=== PATIENT | male | born 1955 | race Caucasian/White ===

== ENCOUNTER 2019-07-23 18:00 | Emergency (ER) | payer OTHER ==
--- NOTE | 2019-07-23 22:18 | ED ---
Throat Pain/Nasal Congestion - HPI Summary HPI Summary: This pt is a 64 Y/O M presenting to [facility] with a CC of a possible detached R retina that occurred around 1600 or 1630. He states that he was fishing and returned to his car when he started to experience floaters in his visual field. He states that he was trying to drive when his eye glazed over. He states that he has a Hx of a torn retina one year ago in his R eye. He states that in his previous episode he had light flashes but is currently not experiencing that. He has no pain or headaches. He has no aggravating or alleviating factors. He has a PMHx of a detached retina in his R eye. - History of Current Complaint Chief Complaint: EDEyeProblem Time Seen by Provider: 07/23/19 21:49 Hx Obtained From: Patient Onset/Duration: Sudden Onset, Still Present Severity: Moderate - Allergies/Home Medications Allergies/Adverse Reactions: Allergies Allergy/AdvReac Type Severity Reaction Status Date / Time codeine Allergy Hives Verified 07/23/19 18:18 Home Medications: Home Medications Atorvastatin* [Lipitor*] 80 mg PO BEDTIME 07/23/19 [History Confirmed 07/23/19] Citalopram Hydrobromide [Citalopram HBr] 20 mg PO DAILY 07/23/19 [History Confirmed 07/23/19] Lisinopril TAB* [Prinivil TAB 5 MG*] 5 mg PO DAILY 07/23/19 [History Confirmed 07/23/19] Metoprolol Tartrate TAB* [Lopressor TAB*] 12.5 mg PO BID 07/23/19 [History Confirmed 07/23/19] Ticagrelor (NF) [Brilinta 60 MG TAB] 60 mg PO BID 07/23/19 [History Confirmed ] PMH/Surg Hx/FS Hx/Imm Hx Previously Healthy: Yes Respiratory History: Denies: Hx Asthma Sensory History: Reports: Hx Contacts or Glasses, Other Sensory Impairments - R retina detchment Opthamlomology History: Reports: Hx Contacts or Glasses - Immunization History Immunizations Up to Date: Yes Infectious Disease History: No Infectious Disease History: Denies: Traveled Outside the [place] in Last 30 Days - Social History Occupation: Retired Lives: With Family Alcohol Use: None Hx Substance Use: No Substance Use Type: Reports: None Hx Tobacco Use: No Smoking Status (MU): Never Smoked Tobacco Review of Systems ENT: Negative - R eye light flashes , Other - R ye floaters, gazed vision Negative: Headache All Other Systems Reviewed And Are Negative: Yes Physical Exam Triage Information Reviewed: Yes Vital Signs On Initial Exam: Initial Vitals Temp Pulse Resp BP Pulse Ox 97.3 F 55 18 146/95 98 07/23/19 18:15 07/23/19 18:15 07/23/19 18:15 07/23/19 18:15 07/23/19 18:15 Vital Signs Reviewed: Yes Diagnostics - Vital Signs Vital Signs Temp Pulse Resp BP Pulse Ox 07/23/19 20:27 97.5 F 51 16 179/93 99 07/23/19 18:15 97.3 F 55 18 146/95 98 - Laboratory Lab Statement: Any lab studies that have been ordered have been reviewed, and results considered in the medical decision making process. EENT Course/Dx - Course Course Of Treatment: This pt is a 64 Y/O M presenting to [facility] with a CC of a possible detached R retina that occurred around 1600 or 1630. He states that he was fishing and returned to his car when he started to experience floaters in his visual field. He states that he was trying to drive when his eye glazed over. He states that he has a Hx of a torn retina one year ago in his R eye. His PE was completed using an US which found a retinal detachment in his posterior aspect of his retina. He will be diagnosed with a retinal detachment. 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 Scribe Documentation Reviewed: Yes Provider Attestation: The documentation as recorded by the scribe, Marcello Mcneal accurately reflects the service I personally performed and the decisions made by me, Ivan Morales MD Status of Scribe Document: Viewed
[2019-07-24 00:27] VITALS: BP 144/87
== END 2019-07-24 00:26 | disposition home or self-care (01) ==
LOC: ED 18:00
DX: H33.21 Serous retinal detachment, right eye (principal); Z79.899 Other long term (current) drug therapy
CPT/HCPCS: 99282